=== PATIENT | female | born 1960 | race Caucasian/White ===

== ENCOUNTER 2018-09-30 10:01 | Day surgery (SDC) | payer OTHER ==
[2018-09-30] MEDS ORDERED: FENTAnyl 50 MCG/ML VIAL (12:21)
[2018-09-30] MEDS ORDERED: MIDAZOLAM 1 MG/ML 2 ML INJ ×2 (12:21)
== END 2018-09-30 12:35 | disposition home or self-care (01) ==
LOC: GIL 10:01
DX: Z12.11 Encounter for screening for malignant neoplasm of colon (principal); D12.3 Benign neoplasm of transverse colon; K64.8 Other hemorrhoids; E11.9 Type 2 diabetes mellitus without complications
CPT/HCPCS: 45380; 82962; 88305